=== PATIENT | female | born 1980 | race Caucasian/White ===

== ENCOUNTER 2021-12-24 06:39 | Day surgery (SDC) | payer OTHER ==
[~2021-12-24 06:39] MED LIST: ceFAZolin 1 GM in Premix Bag 1 BAG IV ONE
[2021-12-24] MEDS ORDERED: Lactated Ringers 1,000 ML IV SCH (06:45)
[2021-12-24] MEDS ORDERED: Dexamethasone 4 MG/ML 5 ML MDV ONE (07:18)
[2021-12-24] MEDS ORDERED: Lidocaine 2% 5 ML SDV ONE (07:18)
[2021-12-24] MEDS ORDERED: Ondansetron 4 MG/2 ML SDV ONE (07:18)
[2021-12-24] MEDS ORDERED: Midazolam 1 MG/ML 2 ML SDV ONE (07:19)
[2021-12-24] MEDS ORDERED: Propofol 200 MG/20 ML SDV ONE (07:19)
[2021-12-24] MEDS ORDERED: fentaNYL 100 MCG/2 ML SDV ONE (07:19)
[2021-12-24] MEDS ORDERED: Albuterol 0.083% 2.5 MG/3 ML Neb Soln NEB PRN (07:25)
[2021-12-24] MEDS ORDERED: fentaNYL 100 MCG/2 ML SDV IVPUSH PRN (07:25)
[2021-12-24] MEDS ORDERED: Ondansetron 4 MG/2 ML SDV IVPUSH PRN (07:25)
[2021-12-24] MEDS ORDERED: HYDROmorphone 1 MG/ML Syringe IVPUSH PRN (07:25)
[2021-12-24] MEDS ORDERED: Naloxone 0.4 MG/ML SDV IVPUSH PRN (07:25)
[2021-12-24] MEDS ORDERED: Metoclopramide 10 MG/2 ML SDV IVPUSH PRN (07:25)
[2021-12-24] MEDS ORDERED: Octyl 2-Cyanoacrylate 1 Tube ONE (07:34)
[2021-12-24] MEDS ORDERED: Lidocaine 1% with EPINEPHrine 1:100,000 10 ML MDV ONE (07:34)
[2021-12-24] MEDS ORDERED: Bupivacaine 0.25% 10 ML SDV ONE (07:34)
[2021-12-24] MEDS ORDERED: Neomycin/Polymyxin B Bladder Irrigation 1 ML Amp ONE (07:35)
== END 2021-12-24 09:25 | disposition home or self-care (01) ==
LOC: MW.SDS 06:39
PROVIDERS: ATTEND Obstetrics & Gynecology
DX: N39.3 Stress incontinence (female) (male) (principal); N36.41 Hypermobility of urethra; Z79.899 Other long term (current) drug therapy
CPT/HCPCS: 57288; A9270; C1771; J0690; J2250; J2704; J3490; J7120; 00860; J1100; J2405; J3010

== ENCOUNTER 2024-02-19 12:41 | Emergency (ER) | payer OTHER ==
[2024-02-19 15:01] LABS: BASOPHILS ABSOLUTE AUTO 0.07 K/uL (0.00-0.20); BASOPHILS PERCENT AUTO 0.6 % (0.0-1.0); EOSINOPHILS ABSOLUTE AUTO 0.04 K/uL (0.00-0.45); EOSINOPHILS PERCENT AUTO 0.3 % (0.0-6.0); HEMATOCRIT 42.9 % (37.0-47.0); HEMOGLOBIN 14.9 g/dL (12.0-16.0); IMMATURE GRAN ABSOLUTE AUTO 0.06 K/uL (0.00-0.05); IMMATURE GRAN PERCENT AUTO 0.5 % (0.0-0.4); LYMPHOCYTES ABSOLUTE AUTO 1.16 K/uL (1.00-4.80); LYMPHOCYTES PERCENT AUTO 9.9 % (24.0-44.0); MEAN CORPUSCULAR HGB CONC 34.7 g/dL (32.0-36.0); MEAN CORPUSCULAR VOLUME 86.3 fL (83.0-99.0); MEAN PLATELET VOLUME 8.9 fL (9.4-12.3); MONOCYTES ABSOLUTE AUTO 0.43 K/uL (0.00-0.80); MONOCYTES PERCENT AUTO 3.7 % (0.0-8.0); NEUTROPHILS ABSOLUTE AUTO 9.98 K/uL (1.80-7.70); PLATELET COUNT,PLT 264 K/uL (150-400); RED BLOOD CELL COUNT 4.97 M/uL (4.10-5.30); WHITE BLOOD CELL COUNT,WBC 11.74 K/uL (3.9-11.3)
[2024-02-19 15:36] LABS: CALCIUM 9.2 mg/dL (8.5-10.1); CARBON DIOXIDE,CO2 23.6 mmol/L (21.0-32.0); CREATININE 0.7 mg/dL (0.6-1.0); EST CRCL DRUG DOSING (CG) 95.17 mL/min; MAGNESIUM 2.2 mg/dL (1.8-2.4); POTASSIUM,K 4.8 mmol/L (3.5-5.1); TSH ULTRASENSITIVE 2.88 uIU/mL (0.36-3.74)
== END 2024-02-19 16:29 | disposition home or self-care (01) ==
LOC: MW.ED 12:41
DX: R55 Syncope and collapse (principal)
CPT/HCPCS: 36415; 80048; 82947; 83735; 84443; 84703; 85025; 93005; 99284